=== PATIENT | female | born 1970 | race Caucasian/White ===

== ENCOUNTER → 2020-06-16 | Day surgery (SDC) | payer OTHER ==
[~2020-06-16] MED LIST: ALL DAY ALLERGY10 M2 PO; DRISDOL50000 UNIT PO; FENOFIBRATE54 MG PO; FLONASE ALLERG9.9 ML; LIPITOR40 M1 PO; PERCOCET 5-3251 EACH PO; SINGULAIR10 MG PO; VENTOLIN HFA IN18 GM INH; VIT B12; ZYRTEC10 MG PO
[2020-06-16 06:48] LABS: BUN/CREAT RATIO (CALC) 16.4 RATIO; CREATININE 0.73 mg/dL (0.51-0.95)
== END | disposition home or self-care (01) ==
LOC: FAS 06:03
PROVIDERS: Orthopaedic Surgery
DX: M16.12 Unilateral primary osteoarthritis, left hip (principal); K58.9 Irritable bowel syndrome, unspecified; F17.210 Nicotine dependence, cigarettes, uncomplicated; J44.9 Chronic obstructive pulmonary disease, unspecified; Z79.899 Other long term (current) drug therapy; Z88.0 Allergy status to penicillin; Z91.041 Radiographic dye allergy status
CPT/HCPCS: 36415; 76000; 80048; 93005; J1040; J2001; J2704; J7120; Q9967

== ENCOUNTER → 2020-12-08 | Day surgery (SDC) | payer OTHER ==
[~2020-12-08] VITALS: Ht 162.6 cm; Wt 65.8 kg
== END | disposition home or self-care (01) ==
LOC: FAS 06:03
DX: M16.12 Unilateral primary osteoarthritis, left hip (principal); Z91.041 Radiographic dye allergy status; Z88.0 Allergy status to penicillin
CPT/HCPCS: 76000; J1040; J2001; J2250; J2704; J7120; Q9967

== ENCOUNTER 2021-02-15 09:26 | Day surgery (SDC) | payer OTHER ==
[~2021-02-15] VITALS: Ht 163 cm; Wt 66.0 kg
--- NOTE | 2021-02-15 15:23 | NUR ---
PT WILL GET A 3:1 AND [facility] HAS BEEN NOTIFIED AND PT WILL NEED HOME HEALTH IN [facility] WILL NEED TO SPEAK TO PT TO SEE DESIRED HOME HEALTH
[2021-02-15] MEDS ORDERED: FEOSOL325 MG PO (16:14)
[2021-02-15] MEDS ORDERED: ULTRA-LIGHT RO1 EACH XX (16:14)
[2021-02-15] MEDS ORDERED: 3IN1 COMMODE XX (16:14)
[2021-02-15] MEDS ORDERED: ASPIRIN81 MG PO (16:14)
--- NOTE | 2021-02-15 17:05 | NUR ---
02/15/21 Pt lives at home with s.o.. A referral was made to [facility] per patient choice; affliation understood.
[2021-02-16 05:40] LABS: BASOPHIL 0.3 % (0-2); EOSINOPHIL 0.1 % (0-5); HCT 36.1 % (37.0-47.0); HGB 12.1 g/dl (12.5-16.0); LYMPHOCYTE 11.1 % (15-48); MCH 31.4 pg (25.0-31.0); MCHC 33.5 g/dL (32.0-36.0); MCV 93.8 fL (78.0-100.0); MONOCYTE 5.1 % (0-12); MPV 10.6 fL (6.0-9.5); NEUTROPHIL 82.8 % (41-80); NRBC 0; PLT 208 K/uL (150-400); RBC 3.85 M/uL (4.20-5.40); RDW 13.1 % (11.5-14.0)
[2021-02-16 05:58] LABS: BUN/CREAT RATIO (CALC) 16.2 RATIO; CREATININE 0.8 mg/dL (0.51-0.95); POTASSIUM 4.5 mmol/L (3.5-5.1)
--- NOTE | 2021-02-16 14:55 | NUR ---
02/16/21 [facility] was notified of discharge.
== END 2021-02-16 11:30 | disposition home health service (06) ==
LOC: FAS 09:26 → FOFB 13:40 → FAS 14:00 → FOR 02-22 07:00 → FAS 02-22 07:00
PROVIDERS: Orthopaedic Surgery
DX: M16.12 Unilateral primary osteoarthritis, left hip (principal); J44.9 Chronic obstructive pulmonary disease, unspecified; K58.9 Irritable bowel syndrome, unspecified; K44.9 Diaphragmatic hernia without obstruction or gangrene; N30.10 Interstitial cystitis (chronic) without hematuria; E78.00 Pure hypercholesterolemia, unspecified; F17.200 Nicotine dependence, unspecified, uncomplicated; Z79.899 Other long term (current) drug therapy; Z88.0 Allergy status to penicillin; Z88.8 Allergy status to other drugs, medicaments and biological substances
CPT/HCPCS: 36415; 73501; 76000; 80048; 85025; 86850; 86900; 86901; 94010; 97110; 97162; 97166; 97530-GP; 97535; C1776; J0171; J1100; J1170; J1885; J2250; J2270; J2405; J2704; J2795; J3010; J3370; J7050; J7120